=== PATIENT | female | born 2000 | race Caucasian/White ===

== ENCOUNTER 2020-01-06 20:35 | Emergency (ER) | payer OTHER ==
[~2020-01-06] VITALS: Ht 190.5 cm; Wt 113.4 kg
[2020-01-06 20:37] VITALS: BP 142/90
--- NOTE | 2020-01-06 20:45 | ER.PDOC ---
General Chief Complaint: Extremities Stated Complaint: KNEE PAIN Time seen by MD: 20:44 Source: patient Exam Limitations: no limitations History of Present Illness Initial Comments Left knee pain this evening, patient was playing with his girlfriend, twisted it and felt a pop. Onset: just prior to arrival Where: home Context: twist Severity: moderate Associated Symptoms: unable to bear weight Past Medical History Medical History: no pertinent history Surgical History: knee Social History Alcohol Use: occassionally Drug Use: none Review of Systems Constitutional: no symptoms reported EENTM: no symptoms reported Respiratory: no symptoms reported Cardiovascular: no symptoms reported Gastrointestinal: no symptoms reported Musculoskeletal: see HPI All Other Systems: Reviewed and Negative Physical Exam General Appearance: Alert, No Apparent Distress Foot: nml inspection, non-tender, nml color/temp, skin intact Ankle: nml inspection, non-tender, nml ROM, no joint swelling, skin intact Knee: tenderness (left knee without swelling or deformity) Thigh/Hip: nml inspection Gait: limited by pain Neuro/Vasc/Tendon: sensation nml, motor nml, no vascular compromise, tendon function nml Skin: warm/dry Head/ENT: nml inspection, pharynx nml Neck/Back: nml inspection, non-tender Abdomen: non-tender, pelvis stable Results/Orders Results/Orders Orders - MARILIA AL MD Xr Knee Lt 2v (01/06/20 20:43) Vital Signs Date Time Temp Pulse Resp B/P (MAP) Pulse Ox O2 Delivery O2 Flow Rate FiO2 01/06/20 20:37 99.5 86 16 01/06/20 20:37 99.5 86 16 142/90 (107) 98 Room Air 01/06/20 20:37 99.5 86 16 98 EKG/XRAY/CT/US XRAY Comments: Unremarkable left knee ER DEPART Departure Time of Disposition: 21:23 Disposition: 01 HOME, SELF-CARE Impression: Primary Impression: Left knee injury Condition: Stable Additional Instructions: Ice Ibuprofen F/U with your PCP in 1 week Return to ED if worsening symptoms or concerns Duration or Time Spent with Pa: 30 min Problem Qualifiers Primary Impression: Left knee injury Encounter type: initial encounter Qualified Codes: S89.92XA - Unspecified injury of left lower leg, initial encounter MARILIA AL MD Jan 06, 2020 20:45
--- NOTE | 2020-01-06 21:16 | DIREP ---
PROCEDURE:XRAY KNEE 2 VWS-LT COMPARISON:None. INDICATIONS:pain/injury FINDINGS: Two views of the left knee. No fracture or dislocation identified. No radiopaque foreign body. CONCLUSION: 1. Left knee, unremarkable. If pain persists, MRI of the left knee could be considered to assess for internal derangement. Dictated by: Ana Martínez MD on 01/06/2020 at 09:14 PM
--- NOTE | 2020-01-06 21:50 | NUR ---
DISCHARGE DISCHARGE INSTRUCTIONS GIVEN TO PATIENT. PT REFUSED CRUTCHES, JACE WRAP OR KNEE IMMOBILIZER.
[2020-01-06 21:53] VITALS: BP 108/76
== END 2020-01-06 21:50 | disposition home or self-care (01) ==
LOC: ER 20:35
DX: S89.92XA Unspecified injury of left lower leg, initial encounter (principal); X50.1XXA Overexertion from prolonged static or awkward postures, initial encounter; Y93.89 Activity, other specified; Y92.89 Other specified places as the place of occurrence of the external cause; Y99.8 Other external cause status
CPT/HCPCS: 99283; 73560-LT

== ENCOUNTER 2020-03-27 17:35 | Emergency (ER) | payer BC ==
[~2020-03-27] VITALS: Ht 188 cm; Wt 104.3 kg
[2020-03-27 17:45] VITALS: BP_SYST 139; BP_SYST 149; BP_DIAS 110; BP_DIAS 84
[2020-03-27 17:50] VITALS: BP 139/84
[2020-03-27] MEDS ORDERED: NS 1000ML 1,000 ML IV STA (18:04)
--- NOTE | 2020-03-27 18:11 | ER.PDOC ---
General Chief Complaint: Requesting Medical Care Stated Complaint: MEDICINE REACTION Time seen by MD: 18:07 Source: family (mom reported patient called her and told her he took OTC cough medicine and now doesn't feel right) Exam Limitations: clinical condition (patient will not answer questions) History of Present Illness Initial Comments nursing went out to get patient out of his truck and found him with engine running, phone in lap and poorly responsive to questions and sternal rub Timing/Duration: 1 hour Character of AMS: disoriented, decreased responsiveness Usually: orientedx3 Decreased Ability to Stand: weak Associated Symptoms: recent illness (took OTC cough/cold medication prior to arrival) Past Medical History Medical History: no pertinent history Surgical History: knee Social History Smoking: non-smoker Alcohol Use: occassionally Drug Use: none Review of Systems Constitutional: fever, malaise Eyes: denies no symptoms reported, denies see HPI, denies blindness, denies blurred vision, denies drainage, denies decreased acuity, denies foreign body sensation, denies inflammation, denies pain, denies photophobia, denies previous injury, denies shadows, denies tunnel vision, denies vision change, denies contact lenses, denies glasses, denies other Ears, Nose, Mouth, Throat: nose discharge Respiratory: denies no symptoms reported, denies see HPI, denies cough, denies orthopnea, denies shortness of breath, denies stridor, denies wheezing, denies other Cardiovascular: denies no symptoms reported, denies see HPI, denies chest pain, denies edema, denies palpitations, denies syncope, denies other Gastrointestinal: denies no symptoms reported, denies see HPI, denies abdominal pain, denies constipation, denies diarrhea, denies nausea, denies vomiting, denies other Genitourinary: denies no symptoms reported, denies see HPI, denies discharge, denies dysuria, denies frequency, denies hematuria, denies pain, denies other Musculoskeletal: denies no symptoms reported, denies see HPI, denies back pain, denies gout, denies joint pain, denies joint swelling, denies muscle pain, denies muscle stiffness, denies neck pain, denies other Skin: denies no symptoms reported, denies see HPI, denies change in color, denies change in hair/nails, denies dryness, denies lesions, denies lumps, denies rash, denies other Psychiatric/Neurological: other (medication made him feel funny) Endocrine: denies no symptoms reported, denies see HPI, denies excessive sweating, denies flushing, denies intolerance to cold, denies intolerance to heat, denies increased hunger, denies increased thrist, denies increased urine, denies unexplained weight gain, denies unexplaned weight loss, denies other Physical Exam General Appearance: other (originally would not open eyes or answer questions; when contreras catheter ordered, patient roused and was able to answer questions appropriately) HEENT: no apparent trauma, EOM's intact (when I open patient's eyes to check pupillary reflex, he rolled eyes away from me and sqeezed lids shut), no nystagmus, PERRL Neuro/Psych: oriented x3, nml speech/cognition Cranial Nerves: nml as tested Peripheral Exam: motor nml (moves all extremities) Respiratory: no resp distress, breath sounds nml CVS: reg rate & rhythm, heart sounds nml Abdomen: non-tender, no distention Skin: color nml, warm/dry Extremities: non-tender, nml ROM Results/Orders Results/Orders Vital Signs Date Time Temp Pulse Resp B/P (MAP) Pulse Ox O2 Delivery O2 Flow Rate FiO2 03/27/20 17:50 99.1 74 16 139/84 (102) 100 03/27/20 17:45 99.1 69 16 100 03/27/20 17:45 99.1 74 16 Administered Medications Medications (Trade) Dose Ordered Sig/Brayan Route PRN Reason Start Time Stop Time Status Last Admin Dose Admin Sodium Chloride 1,000 ml @ 1,200 mls/hr Q50M STAT IV 03/27/20 18:04 03/27/20 18:53 DC 03/27/20 18:20 1,200 MLS/HR Laboratory Tests Test 03/27/20 18:05 03/27/20 18:26 White Blood Count 8.3 10^3/uL (4.5-11.0) Red Blood Count 5.92 10^6/uL (4.50-5.90) H Hemoglobin 16.5 g/dL (13.9-16.3) H Hematocrit 48.3 % (37.0-53.0) Mean Corpuscular Volume 81.6 fL (78-100) Mean Corpuscular Hemoglobin 27.9 pg (26-34) Mean Corpuscular Hemoglobin Concent 34.2 g/dL (33-36.5) Red Cell Distribution Width 13.4 % (11.5-14.5) Platelet Count 320 10^3/uL (150-400) Mean Platelet Volume 9.9 fL (7.8-11.0) Neutrophils (%) (Auto) 52.5 % (41.0-85.0) Lymphocytes (%) (Auto) 31.2 % (24.0-44.0) Monocytes (%) (Auto) 13.7 % (5.0-12.0) H Neutrophils # (Auto) 4.4 10^3/uL (1.8-7.7) Lymphocytes # (Auto) 2.59 10^3/uL1 (1.0-4.8) Monocytes # (Auto) 1.1 10^3/uL (0.3-0.8) H Absolute Immature Granulocyte (auto 0.03 10^3 u/L (0-2) Absolute Eosinophils (auto) 0.1 10^3/uL (0.0-0.2) Immature Granulocytes % 0.40 % (0.00-0.50) Eosinophils % 1.1 % (0.0-5.0) Basophils % 1.1 % (0.0-0.2) H Basophils # 0.1 10^3/uL (0.0-0.1) Sodium Level 137 mmol/L (132-145) Potassium Level 3.3 mmol/L (3.6-5.2) L Chloride Level 100.0 mmol/L (96-109) Carbon Dioxide Level 27.6 mmol/L (20.0-32) Anion Gap 12.7 Blood Urea Nitrogen 8 mg/dL (7-18) Creatinine 1.31 mg/dL (0.59-1.40) Estimated GFR () 83.6 (>/=60) Est GFR (CKD-EPI)(Non-Afr [place]ese) 69.1 (>/=60) BUN/Creatinine Ratio 6.0 Glucose Level 77 mg/dL (70-110) Calcium Level 9.4 mg/dL (8.4-10.5) Total Bilirubin 0.5 mg/dL (0.2-1.0) Aspartate Amino Transferase (AST) 20 U/L (0-35) Alanine Aminotransferase (ALT) 25 U/L (12-78) Alkaline Phosphatase 118 U/L (50-136) Total Creatine Kinase 49 U/L (39-308) Total Protein 7.8 g/dL (6.4-8.2) Albumin 4.1 g/dL (3.4-5.0) Globulin 3.7 Albumin/Globulin Ratio 1.108 Salicylates Level 4.2 mg/dL (2.8-20.0) Acetaminophen Level < 2 ug/mL (10-30) L Serum Alcohol 4 mg/dL (0-50) SARS-CoV-2 Antigen (Rapid) POSITIVE (NEGATIVE) *A Progress Progress signed out to Dr. Faust at shift change ER DEPART Departure Time of Disposition: 19:42 Disposition: 01 HOME, SELF-CARE Impression: Primary Impression: Medication reaction Additional Impression: COVID-19 Condition: Stable Referrals: PCP,UNKNOWN (PCP) PRIMARY CARE PROVIDER Comments Pt given warnings about staying home. Advised the rest of the family get tested sometime next week. Advised that all family members wear a mask if leaving the house. Advised Tylenol or Motrin for his headache/viral syndrome. Follow up ED if develops any respiratory symptoms Duration or Time Spent with Pa: 35m Problem Qualifiers CLARA OSBORNE DO Mar 27, 2020 18:11 DOREEN FAUST MD Mar 27, 2020 19:45
--- NOTE | 2020-03-27 18:15 | NUR ---
LOC PT IS ABLE TO RESPOND AND ANSWER QUESTIONS APPROPRIATLY. GCS 15.
[2020-03-27] MEDS ORDERED: NS 1000ML 1,000 ML ONE ×2 (18:16→18:55)
[2020-03-27 18:22] LABS: BASOPHIL # 0.1 10^3/uL (0.0-0.1); BASOPHIL % 1.1 % (0.0-0.2); EOSINOPHIL # 0.1 10^3/uL (0.0-0.2); EOSINOPHIL % 1.1 % (0.0-5.0); LYMPHOCYTES # 2.59 10^3/uL1 (1.0-4.8); LYMPHOCYTES % 31.2 % (24.0-44.0); MEAN CORP HGB 27.9 pg (26-34); MONOCYTES # 1.1 10^3/uL (0.3-0.8); MONOCYTES % 13.7 % (5.0-12.0); NEUTROPHIL # 4.4 10^3/uL (1.8-7.7); NEUTROPHILS % 52.5 % (41.0-85.0); PLATELET COUNT 320 10^3/uL (150-400); RED CELL DISTRIBUTION WIDTH 13.4 % (11.5-14.5)
[2020-03-27 18:46] LABS: ALANINE AMINOTRANSFERASE(ML) 25 U/L (12-78); ALKALINE PHOSPHATASE 118 U/L (50-136); ASPARTATE AMINO TRANSFERASE 20 U/L (0-35); CALCIUM 9.4 mg/dL (8.4-10.5); CARBON DIOXIDE 27.6 mmol/L (20.0-32); GLUCOSE 77 mg/dL (70-110)
--- NOTE | 2020-03-27 18:58 | NUR ---
NS PER VERBAL ORDER FROM DR. OSBORNE SECOND LITER OF NS STARTED AT THIS TIME, WIDE OPEN BOLUS.
[2020-03-27 20:18] VITALS: BP 136/82
[2020-03-27 20:42] LABS: APPEARANCE,URINE CLEAR (CLEAR); BILIRUBIN,URINE NEGATIVE (NEGATIVE); UA COLOR YELLOW (YELLOW); UROBILINOGEN,URINE NEGATIVE (NEGATIVE)
--- NOTE | 2020-03-28 17:25 | PCM.EKG ---
[facility] Test Date: 2020-03-27 Test Time: 18:29:00 Pat Name: CHAGO ANGULO Department: Patient ID: [facility]-[id number] Room: Gender: M Return Agent [place]: [place] : 2000 Requested By: CLARA OSBORNE Order Number: [id number] Reading MD: Parisa Osborne Measurements Intervals [place] Rate: 64 P: -23 RI: 158 QRS: 45 QRSD: 93 T: 30 QT: 387 QTc: 400 Interpretive Statements Sinus arrhythmia Low voltage, precordial leads No previous ECG available for comparison Electronically Signed On 03-30-2020 18:59:06 [employer] by Parisa Osborne Please click the below link to view image of tracing.
== END 2020-03-27 20:14 | disposition home or self-care (01) ==
LOC: ER 17:35
DX: U07.1 COVID-19 (principal); B34.9 Viral infection, unspecified; T50.905A Adverse effect of unspecified drugs, medicaments and biological substances, initial encounter; Y92.89 Other specified places as the place of occurrence of the external cause
CPT/HCPCS: 36415; 80053; 80307; 81003; 82550; 85025; 87070; 87426; 87804 ×2; 87880; 93005; 96360; 99284; J7030 ×2; 80299; 80320

== ENCOUNTER 2020-07-27 05:19 | Emergency (ER) | payer BC ==
[~2020-07-27] VITALS: Ht 190.5 cm; Wt 108.9 kg
--- NOTE | 2020-07-27 05:25 | NUR ---
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 ERP NOTIFIED. NOT INJURY, REDNESS, SWELLING NOTED. FULL ROM NOTED UPON ASSESSMENT.
[2020-07-27 05:35] VITALS: BP 154/80
--- NOTE | 2020-07-27 05:55 | ER.PDOC ---
General Chief Complaint: Extremities Stated Complaint: FOOT PAIN Time seen by MD: 05:30 Source: patient Exam Limitations: no limitations History of Present Illness Initial Comments This 20-year-old white male comes in with a complaint of his right fifth toe causing pain for the past 2 weeks. Ask him if he traumatized it in any way shape or form and he does not remember doing anything to it. 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 This has been going on for 2 weeks. He did try to get in with podiatry in [place] but nobody has an appointment available for at least 2 weeks. But ask if he is taking any medicine for to help with the pain, he has not.The patient describes this as feeling like the toe is " from his body".On exam, the only place he c omplains of pain is the distal lateral aspect of the toe past the DIP joint. There is no edema there is no erythema toenail is not ingrown. Onset: other (2w) Recent Injury: No Severity: moderate Exacerbated By: walking movement Relieved By: rest Allergies: Coded Allergies: Sulfa (Sulfonamide Antibiotics) (Verified Allergy, Unknown, 07/27/20) Past Medical History Medical History: no pertinent history Surgical History: knee Social History Smoking: quit less than 1 year, cigarettes Alcohol Use: occassionally Drug Use: none Review of Systems Musculoskeletal: see HPI All Other Systems: Reviewed and Negative Physical Exam General Appearance: Alert, No Apparent Distress Lower Extremity: nml inspection, no pedal edema, tenderness Joint Exam: joints nml, nml ROM, nml gait/weight bearing Vascular: no vascular compromise, pulses full/equal Neuro/Psych: sensation nml, motor nml, oriented x3, CN's nml as tested, mood/affect nml Skin: color nml, warm/dry, no rash Back/Neck: nml inspection EENT: eyes inspection nml, ENT inspection nml, pharynx nml CVS: reg rate & rhythm, heart sounds nml Abdomen: non-tender, no organomegaly, no bruit/mass Results/Orders Results/Orders Orders - DOREEN MCKOY MD Xr Foot Rt (07/27/20 05:45) Vital Signs Date Time Temp Pulse Resp B/P (MAP) Pulse Ox O2 Delivery O2 Flow Rate FiO2 07/27/20 05:35 98.2 74 16 154/80 (104) 98 Room Air 07/27/20 05:35 98.2 74 16 07/27/20 05:35 98.2 74 16 98 Progress Progress X-ray of right foot/little toe does not show any fracture or dislocation. NML XRAY ER DEPART Departure Time of Disposition: 05:58 Disposition: 01 HOME, SELF-CARE Impression: Primary Impression: Toe pain Condition: Stable Referrals: PCP,UNKNOWN (PCP) PRIMARY CARE PROVIDER Comments Motrin 800mg, one po 3-4 times a day prn pain, #40 Duration or Time Spent with Pa: 15m DOREEN MCKOY MD Jul 27, 2020 05:55
--- NOTE | 2020-07-27 05:58 | DIREP ---
PROCEDURE:XRAY FOOT MIN 3 VWS-RT COMPARISON:None. INDICATIONS:pain FINDINGS: BONES:Normal. JOINTS:Normal. SOFT TISSUES:Normal. OTHER:No additional findings. CONCLUSION:Normal right foot. Dictated by: Neel Minor M.D. on 07/27/2020 at 05:56 AM
== END 2020-07-27 06:05 | disposition home or self-care (01) ==
LOC: ER 05:19
DX: M79.674 Pain in right toe(s) (principal); Z88.2 Allergy status to sulfonamides
CPT/HCPCS: 99283; 73630-RT